=== PATIENT | female | born 1985 | race Caucasian/White ===

== ENCOUNTER 2017-08-27 10:50 | Emergency (ER) | payer BC ==
[~2017-08-27] VITALS: Ht 170.2 cm; Wt 54.0 kg
[2017-08-27 11:00] VITALS: TEMP 37; Ht 170.2 cm; Wt 54.0 kg
[2017-08-27] MEDS ORDERED: LIDO/EPINEPHRINE/SOD BICARB 20 ML VIAL INFIL ONE (11:36)
[2017-08-27] MEDS ORDERED: CEPH500C2 PO (12:18)
--- NOTE | 2017-08-27 12:22 | EMERGENCY ROOM VISIT NOTE ---
ED Visit Note First contact with patient: 11:19 CHIEF COMPLAINT: Infection of the right lower extremity HISTORY OF PRESENT ILLNESS: This 31-year-old female patient presents to the emergency department 4 days after they noticed a hard, red, tender area of the right anterior delgado. The patient states she realized 4 days ago that she had leg pain. She states she went to work, and while at work realized that her whole leg was swollen from her foot to her thigh. He states there is an area on her delgado which began as a small pustular lesion, then began increasing in redness and pain. She was seen at urgent care that day and prescribed Bactrim. She states the redness has improved, however it seems to be more localized in the area of a lump on her right delgado. She states the swelling has improved and the redness and pain in her entire leg has improved. The lump has been slowly getting larger, more painful and tender. No fever, chills, or loss of appetite. There has been minimal drainage from the area. There was no injury to the area preceding the infection, but the patient does believe there was an ingrown hair. They rate the pain as severe and sharp and 6/10. Tetanus shot is up to date. They have tried no OTC treatments. The patient is not diabetic. The patient has no history of subcutaneous abscesses. REVIEW OF SYSTEMS: A review of systems was performed with positives and pertinent negatives listed in the history of present illness. All other systems were reviewed and are negative. ALLERGIES: Morphine MEDICATIONS: Adderall, Celexa, Necon, Ativan PMH: ADHD, anxiety SOCIAL HISTORY: The patient lives approximately 2 hours away. She states she works locally and travels often. She denies drug use. The patient admits to smoking cigarettes and drinking alcohol regularly. PHYSICAL EXAM: Vital Signs: Reviewed Nurse's notes, vital signs stable. GENERAL : This is a 31-year-old white female, no acute distress, non toxic in appearance , well-developed well-nourished. SKIN: There is an erythematous indurated area on the right anterior delgado which measures about 2 cm in diameter. It is fluctuant but there is no pointing or drainage. There is a zone of inflammation around it but no lymphangitis. Capillary refill less than 2 seconds. MUSCULOSKELETAL: There is no limitation of the range of motion of the right lower extremity. EMERGENCY DEPARTMENT COURSE: I examined the patient. Verbal consent was obtained to perform the procedure. After saline and Betadine cleansing and 2 mL of 1% buffered lidocaine with epinephrine anesthesia, the abscess was incised with a number 11 scalpel blade. A large amount of purulent material was released with more expressed by pressure. A swab was obtained for culture. 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 The abscess cavity was then copiously irrigated with sterile saline under pressure. The area was then packed with bacitracin soaked packing. The area was cleaned with sterile saline and dressed with a bulky bandage. The patient tolerated the procedure well. The patient was discharged home in stable condition. DIFFERENTIAL DIAGNOSIS: Abscess, cellulitis, MRSA, DVT, malignancy, and others DIAGNOSIS: Abscess of the right lower extremity Current/Historical Medications Scheduled Amphetamine-Dextroamphetamine 30MG (Adderall 30MG), 30 MG PO QAM Amphetamine-Dextroamphetamine 30MG (Adderall Xr 30MG), 30 MG PO QPM Cephalexin Monohydrate (Keflex), 500 MG PO QID Citalopram Hydrobromide (Celexa), 30 MG PO QPM Lorazepam (Ativan), 1 TAB PO UD Allergies Coded Allergies: Morphine (Unverified Adverse Reaction, Unknown, itchyness, 08/27/17) Vital Signs Date Time Temp Pulse Resp B/P (MAP) Pulse Ox O2 Delivery O2 Flow Rate FiO2 08/27/17 12:33 78 18 129/66 100 08/27/17 11:00 37.0 101 18 131/65 99 Room Air Departure Information Impression Primary Impression: Abscess of right lower extremity Dispostion Home / Self-Care Condition GOOD Prescriptions Cephalexin Monohydrate (KEFLEX) 500 Mg Cap 500 MG PO QID for 7 Days, #28 CAP Prov: Maria M Xiao PA-C 08/27/17 Referrals No Doctor, Assigned (PCP) Patient Instructions ED Abscess IandIlya, My [facility] Additional Instructions You were seen in the emergency department for an abscess of your right lower leg. This was drained successfully. There is packing in place. Please do not full on the packing which is sticking out of the outside of the skin. You may change the outer dressing if it becomes saturated with blood or pus or once per day to keep the area clean. Keep the area clean and dry. Do not apply any ointments while the packing remains in place. Do not get the packing wet. Please return to the emergency department or see your PCP for recheck and to have the packing removed and/or changed in approximately 48 hours. You were prescribed Keflex to be taken as directed, in addition to finishing the course of Bactrim you were already prescribed. This is an antibiotic. All antibiotics have the potential to cause diarrhea. Stop this medication and contact a medical provider if you were to develop any significant adverse side effects including: wheezing, shortness of breath, passing out, vomiting, or a diffuse rash. Always take antibiotics as directed and COMPLETE the ENTIRE course regardless of the improvement of your symptoms. Return to the emergency department for any significant, worsening redness, swelling, fever, chills, nausea, vomiting, significant pus like drainage, worsening pain, or other concerning symptoms. Work Instructions Return To Work: 2 days
[2017-08-27 12:33] VITALS: BP 129/66; PULSE 78; O2SAT 100
[2017-08-27] MEDS ORDERED: AMPH30CA3 PO (12:42)
[2017-08-27] MEDS ORDERED: CITA20TA9 PO (12:42)
[2017-08-27] MEDS ORDERED: AMPH30TA2 PO (12:42)
[2017-08-27] MEDS ORDERED: LORA-741 PO (12:42)
--- NOTE | 2017-08-29 14:12 | Pharmacy Progress Note ---
ED Pharmacist Culture FollowUp Date of Service: Aug 29, 2017. Patient was sent home with a prescription for Cephalexin 500mg PO QID x 7 days, which should cover the staph aureus (MSSA) growing from the patient's RLE abscess culture.
== END 2017-08-27 12:35 | disposition home or self-care (01) ==
LOC: C.EDB 10:52 → C.EDC 12:35
DX: L02.415 Cutaneous abscess of right lower limb (principal); M79.604 Pain in right leg